=== PATIENT | female | born 1970 | race Caucasian/White ===

== ENCOUNTER 2018-03-26 21:10 | Emergency (ER) | payer MEDICAID ==
[~2018-03-26] VITALS: Ht 154.9 cm; Wt 59.4 kg
[~2018-03-26 21:10] MED LIST: ALPR0.5T PO; ALPR2TAB2 PO; PERC10 PO; SOM350 PO; TRAM50TA92 PO
[2018-03-26 21:15] VITALS: BP_SYST 104
--- NOTE | 2018-03-26 22:00 | NUR ---
Patient to ER bed 2 to gown for evaluation. Side rails up.
--- NOTE | 2018-03-26 22:49 | NUR ---
47year old female presented to ED accompanied by family with complaints of uncontrolled back pain x 3days; reports CHRONIC BACK PAIN D/T SPINE INJURY, PAIN ususally CONTROLLED BY PERCOCET AND "other painkillers"; awaiting for MD assess/eval
--- NOTE | 2018-03-26 23:25 | NUR ---
Dr. Sauceda at bedside for assess/eval; family at bedside
[2018-03-26] MEDS ORDERED: DIPHENHYDRAMINE INJ 50 MG/ML VIAL IM ONE (23:45)
[2018-03-26] MEDS ORDERED: DEXAMETHASONE SOD PHOSPHATE 10 MG/ML VIAL IM ONE (23:45)
[2018-03-26] MEDS ORDERED: MORPHINE SULFATE 10 MG/ML VIAL IM ONE (23:45)
[2018-03-27 00:51] VITALS: BP_SYST 121
--- NOTE | 2018-03-27 00:51 | NUR ---
Patient given written and verbal discharge instructions and verbalizes understanding. ER MD discussed with patient the results and treatment provided. Patient in stable condition. ID arm band removed. No Rx of given. Patient educated on pain management and to follow up with PMD. Pain Scale 0/10. Opportunity for questions provided and answered. Medication side effect fact sheet provided.
== END 2018-03-27 00:51 | disposition home or self-care (01) ==
LOC: SED 21:10
DX: M54.5 Low back pain (principal); F41.9 Anxiety disorder, unspecified; Z79.899 Other long term (current) drug therapy; Z88.8 Allergy status to other drugs, medicaments and biological substances
CPT/HCPCS: 81025; 96372; 99284; J1100; J1200; J2270

== ENCOUNTER 2018-06-03 16:37 | Emergency (ER) | payer MEDICAID ==
[~2018-06-03] VITALS: Ht 154.9 cm; Wt 59.0 kg
[2018-06-03 16:42] VITALS: BP_SYST 119
[2018-06-03] MEDS ORDERED: DEXAMETHASONE SOD PHOSPHATE 10 MG/ML VIAL IM ONE (17:15)
[2018-06-03] MEDS ORDERED: DIPHENHYDRAMINE INJ 50 MG/ML VIAL IM ONE (17:15)
[2018-06-03] MEDS ORDERED: MORPHINE SULFATE 10 MG/ML VIAL IM ONE (17:15)
[2018-06-03] MEDS ORDERED: traMADol HCL HCL 50 MG TABLET (ULTRAM) PO ONE (18:45)
[2018-06-03 18:54] VITALS: BP_SYST 118
== END 2018-06-03 18:52 | disposition home or self-care (01) ==
LOC: SED 16:37
DX: M25.512 Pain in left shoulder (principal); G89.29 Other chronic pain; F41.9 Anxiety disorder, unspecified; Z79.899 Other long term (current) drug therapy; Z88.8 Allergy status to other drugs, medicaments and biological substances
CPT/HCPCS: 96372; 99284; J1100; J1200; J2270

== ENCOUNTER 2019-04-03 07:55 | Emergency (ER) | payer MEDICAID ==
[~2019-04-03] VITALS: Ht 154.9 cm; Wt 71.2 kg
[2019-04-03 07:59] VITALS: BP_SYST 103
--- NOTE | 2019-04-03 08:08 | NUR ---
Patient to ER bed 8 to gown for evaluation. Side rails up. Report given to DORA Gomez.
--- NOTE | 2019-04-03 09:04 | NUR ---
ER at bedside examining patient.
[2019-04-03] MEDS ORDERED: KETOROLAC TROMETHAMINE 60 MG/2 ML VIAL IM ONE (09:15)
--- NOTE | 2019-04-03 09:15 | NUR ---
pt arrives with c/o lower back pain. 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 No other c/o at the moment.
--- NOTE | 2019-04-03 09:30 | NUR ---
medicated the pt with Toradol per MD order. will reassess.
--- NOTE | 2019-04-03 09:52 | NUR ---
pt reports less back pain. Current back pain is 3/10
[2019-04-03 10:10] VITALS: BP_SYST 103
[2019-04-03 10:13] LABS: BILIRUBIN,URINE NEGATIVE (NEGATIVE); BLOOD, URINE TRACE (NEGATIVE); CLARITY/URINE CLEAR (CLEAR); COLOR,URINE YELLOW (YELLOW); GLUCOSE,URINE NEGATIVE (NEGATIVE); KETONES,URINE NEGATIVE (NEGATIVE); LEUKOCYTE ESTERASE ,URINE NEGATIVE (NEGATIVE); NITRITE, URINE POSITIVE (NEGATIVE); PROTEIN URINE NEGATIVE (NEGATIVE); UROBILINOGEN,URINE 0.2 (0.2-1.0)
--- NOTE | 2019-04-03 10:13 | NUR ---
Patient given written and verbal discharge instructions and verbalizes understanding. ER MD discussed with patient the results and treatment provided. Patient in stable condition. ID arm band removed. Rx of Robaxin given. Patient educated on pain management and to follow up with PMD. Pain Scale 3/10.Opportunity for questions provided and answered. Medication side effect fact sheet provided.
[2019-04-03] MEDS ORDERED: MAGNESIUM CITRATE 300 ML ORAL SOLUTION PO ONE (10:15)
[2019-04-03 10:21] LABS: BACTERIA,URINE MANY /HPF (None Seen); WBC,URINE 0-3 /HPF (0-3)
== END 2019-04-03 10:10 | disposition home or self-care (01) ==
LOC: SED 07:55
DX: G89.29 Other chronic pain (principal); M54.5 Low back pain; F41.9 Anxiety disorder, unspecified; Z88.8 Allergy status to other drugs, medicaments and biological substances; Z79.899 Other long term (current) drug therapy
CPT/HCPCS: 74018; 81000; 81025; 87086; 96374; 99284; J1885

== ENCOUNTER 2019-04-04 21:13 | Emergency (ER) | payer MEDICAID ==
[~2019-04-04] VITALS: Ht 154.9 cm; Wt 71.2 kg
--- NOTE | 2019-04-04 21:13 | NUR ---
Patient to ER bed 07 to gown for evaluation. Side rails up.
[2019-04-04 21:27] VITALS: BP_SYST 107
--- NOTE | 2019-04-04 21:30 | NUR ---
patient arrived from home AOx4 with c/o body pain. patient states she has this all the time and they give her morphine, benydril and ativan for it. patient was here last yesterday for similar complaints. no other complaint or injury at this time.
[2019-04-04] MEDS ORDERED: KETOROLAC TROMETHAMINE 60 MG/2 ML VIAL IM ONE (21:45)
[2019-04-04] MEDS ORDERED: SULFAMETHOXAZOLE/TRIMETHOPR DS 1 TABLET PO ONE (21:45)
--- NOTE | 2019-04-04 21:45 | NUR ---
ER at bedside examining patient.
[2019-04-04] MEDS ORDERED: LORazepam 2 MG/ML VIAL (FOR ER USE) IM ONE (22:00)
--- NOTE | 2019-04-04 22:00 | NUR ---
patient just got a new job and has pain in her feet and her bones feel like fire.
[2019-04-04 22:14] LABS: BASOPHILS % (AUTO) 0.8 % (0.0-2.0); EOSINOPHILS # (AUTO) 0.8 K/uL (0.0-0.4); EOSINOPHILS % (AUTO) 14.6 % (0.0-4.0); HEMOGLOBIN 11.9 g/dL (12.0-16.0); LYMPHOCYTES % (AUTO) 37.7 % (20.5-51.5); MEAN CORPUSCULAR HEMOGLOBIN 35 pg (27-31); MEAN CORPUSCULAR HGB CONC 34 % (32-36); MEAN CORPUSCULAR VOLUME 102 fL (79.0-98.0); MONOCYTES # (AUTO) 0.4 K/uL (0.0-1.0); NEUTROPHILS # (AUTO) 2.2 K/uL (1.8-7.7); NEUTROPHILS % (AUTO) 39.9 % (40.0-70.0); PLATELET COUNT (AUTO) 227 K/uL (130-430); RED BLOOD CELL COUNT(AUTO) 3.42 MIL/uL (4.2-6.2); RED CELL DISTRIBUTION WIDTH 13.7 % (9.0-15.0); WHITE BLOOD COUNT (AUTO) 5.4 K/uL (4.8-10.8)
--- NOTE | 2019-04-04 22:18 | NUR ---
patient laughing on the phone. visual of no pain on a pain scale
--- NOTE | 2019-04-04 22:23 | NUR ---
patient walked to the bathroom while talking on her cell phone with a stable gait.
[2019-04-04 22:41] LABS: C-REACTIVE PROTEIN QUANT 4.1 mg/dL (0-0.5)
--- NOTE | 2019-04-04 22:43 | NUR ---
patient found outside smoking and talking on the phone. patient stated "i want to know whats wrong with me, i have pain." patient was upset and stated "i'm just going to go to another hospital i want my discharge instructions." Provided medical records number.
[2019-04-04 22:53] LABS: CALCIUM 8.1 mg/dL (8.4-11.0); CREATININE 0.66 mg/dL (0.55-1.30); POTASSIUM 3.8 mmol/L (3.5-5.1)
[2019-04-04 22:59] LABS: TOTAL BILIRUBIN 0.4 mg/dL (0.0-1.0)
== END 2019-04-04 22:48 | disposition left against medical advice (07) ==
LOC: SED 21:13
DX: M79.89 Other specified soft tissue disorders (principal); M54.9 Dorsalgia, unspecified; G89.29 Other chronic pain; L53.9 Erythematous condition, unspecified; Z76.5 Malingerer [conscious simulation]; Z88.6 Allergy status to analgesic agent
CPT/HCPCS: 36415; 80053; 85025; 86140; 96372; 99283; J1885; J2060

== ENCOUNTER 2019-09-19 11:55 | Emergency (ER) | payer MEDICAID ==
[~2019-09-19] VITALS: Ht 154.9 cm; Wt 62.6 kg
[2019-09-19 12:07] VITALS: BP_SYST 140
[2019-09-19] MEDS ORDERED: KETOROLAC TROMETHAMINE 60 MG/2 ML VIAL IM ONE (12:30)
[2019-09-19 12:48] LABS: BILIRUBIN,URINE NEGATIVE (NEGATIVE); COLOR,URINE YELLOW (YELLOW); GLUCOSE,URINE NEGATIVE (NEGATIVE); KETONES,URINE NEGATIVE (NEGATIVE); LEUKOCYTE ESTERASE ,URINE NEGATIVE (NEGATIVE); NITRITE, URINE NEGATIVE (NEGATIVE); PROTEIN URINE NEGATIVE (NEGATIVE); UROBILINOGEN,URINE 0.2 (0.2-1.0)
[2019-09-19 12:50] LABS: BLOOD, URINE TRACE (NEGATIVE); CLARITY/URINE SLIGHTLY HAZY (CLEAR)
[2019-09-19 12:54] LABS: BASOPHILS % (AUTO) 0.5 % (0.0-2.0); EOSINOPHILS # (AUTO) 0.2 K/uL (0.0-0.4); EOSINOPHILS % (AUTO) 2.7 % (0.0-4.0); HEMATOCRIT 41.1 % (36-48); HEMOGLOBIN 13.6 g/dL (12.0-16.0); LYMPHOCYTES # (AUTO) 1.6 K/uL (1.0-5.5); LYMPHOCYTES % (AUTO) 23.8 % (20.5-51.5); MEAN CORPUSCULAR HEMOGLOBIN 34 pg (27-31); MEAN CORPUSCULAR HGB CONC 33 % (32-36); MEAN CORPUSCULAR VOLUME 102 fL (79.0-98.0); MONOCYTES # (AUTO) 0.3 K/uL (0.0-1.0); MONOCYTES % (AUTO) 4.2 % (1.7-9.3); NEUTROPHILS # (AUTO) 4.7 K/uL (1.8-7.7); NEUTROPHILS % (AUTO) 68.8 % (40.0-70.0); PLATELET COUNT (AUTO) 244 K/uL (130-430); RED BLOOD CELL COUNT(AUTO) 4.03 MIL/uL (4.2-6.2); RED CELL DISTRIBUTION WIDTH 12.7 % (9.0-15.0); WHITE BLOOD COUNT (AUTO) 6.9 K/uL (4.8-10.8)
[2019-09-19 12:57] LABS: BACTERIA,URINE RARE /HPF (None Seen); MUCUS,URINE 1+ /LPF (None Seen); RBC,URINE 0-3 /HPF (0-3); WBC,URINE 0-3 /HPF (0-3)
[2019-09-19 13:00] LABS: CREATININE 0.57 mg/dL (0.55-1.30); POTASSIUM 4.1 mmol/L (3.5-5.1)
[2019-09-19 13:04] LABS: ALBUMIN 3.9 g/dL (3.4-4.8); TOTAL BILIRUBIN 0.5 mg/dL (0.0-1.0)
[2019-09-19 14:10] VITALS: BP_SYST 140
== END 2019-09-19 14:10 | disposition home or self-care (01) ==
LOC: SED 11:55
DX: S16.1XXA Strain of muscle, fascia and tendon at neck level, initial encounter (principal); G89.29 Other chronic pain; M54.5 Low back pain; F41.9 Anxiety disorder, unspecified; F17.200 Nicotine dependence, unspecified, uncomplicated; Z88.6 Allergy status to analgesic agent; Z79.899 Other long term (current) drug therapy; X50.1XXA Overexertion from prolonged static or awkward postures, initial encounter; Y93.89 Activity, other specified; Y92.22 Religious institution as the place of occurrence of the external cause; Y99.8 Other external cause status
CPT/HCPCS: 36415; 80053; 81000; 85025; 96372; 99283; J1885

== ENCOUNTER 2021-03-29 10:11 | Emergency (ER) | payer MEDICAID ==
[~2021-03-29] VITALS: Ht 154.9 cm; Wt 69.4 kg
[2021-03-29 10:11] VITALS: BP_SYST 110
[2021-03-29] MEDS ORDERED: PRED50TA PO (11:19)
== END 2021-03-29 11:24 | disposition home or self-care (01) ==
LOC: SED 10:11
DX: R21 Rash and other nonspecific skin eruption (principal); T42.8X5A Adverse effect of antiparkinsonism drugs and other central muscle-tone depressants, initial encounter; Z88.8 Allergy status to other drugs, medicaments and biological substances; Z79.899 Other long term (current) drug therapy; Y92.89 Other specified places as the place of occurrence of the external cause
CPT/HCPCS: 99283